=== PATIENT | female | born 1980 | race Caucasian/White ===

== ENCOUNTER 2023-01-21 10:12 | Outpatient (OUT) | payer MEDICAID, SELFPAY ==
[2023-01-21 10:05] VITALS: BP 154/115; PULSE 82; RESP 18; TEMP 36.8; O2SAT 97
[2023-01-21] MEDS: ONDANSETRON PF 4 MG/2 ML VIAL INJ (10:28)
[2023-01-21] MEDS: 0.9 % SODIUM CHLORIDE 1,000 ML 1000 ML IV (10:28)
--- NOTE | 2023-01-21 10:33 | PC.NURSE ---
1005: Pt. to [facility] amb. accompanied by significant other for IV hydration. Pt. c/o nausea x 24-48 hr. Seated in recliner. BP elevated, rest of VSS. #22 gauge IV initiated to right hand on first attempt. Blood drawn from IV for ordered lab work. Flushes easily without redness or edema. Pt. tolerated without c/o. Medicated with Zofran 4mg ivp as ordered and IV 0.9% NS initiated at this time. Warm blankets provided. Denies needs at this time.
--- NOTE | 2023-01-21 11:09 | PC.NURSE ---
1050: Pt. resting quietly with eyes closed. Appears to be without s&s of discomfort or nausea. IV site remains clear.
[2023-01-21 11:28] VITALS: BP 148/92; PULSE 68; RESP 14; TEMP 36.6; O2SAT 98
--- NOTE | 2023-01-21 11:30 | PC.NURSE ---
1124: IVF completed at this time. Relays relief in n/v. VSS. IV d/c'd, pressure to site. 1125: Pt d/c'd amb to home with significant other.
[2023-01-21 14:19] LABS: Alanine Aminotransferase 32 U/L (14-59); Albumin Globulin Ratio 1.4; Albumin Level 4.5 g/dL (3.4-5.0); Alkaline Phosphatase 53 U/L (46-116); Aspartate Amino Transferase 19 U/L (15-37); BUN Creatinine Ratio 15.7; Bilirubin Total 0.9 mg/dL (0.2-1.0); Calcium 9.4 mg/dL (8.5-10.1); Carbon Dioxide 23.8 mmol/L (21.0-32.0); Chloride 97 mmol/L (98-107); Estimated GFR (African America >60 (>=60); Estimated GFR (Non-African Ame >60 (>=60); Globulin 3.3 g/dL; Glucose 125 mg/dL (74-106); Sodium 136 mmol/L (136-145); Total Protein 7.8 g/dL (6.4-8.2)
[2023-01-21 14:31] LABS: Potassium 2.8 mmol/L (3.5-5.1)
== END 2023-01-21 10:13 | disposition home or self-care (01) ==
LOC: INF 10:20
PROVIDERS: PCP Nurse Practitioner Primary Care; Visit Provider Nurse Practitioner Primary Care
DX: K52.9 Noninfective gastroenteritis and colitis, unspecified (principal); R11.2 Nausea with vomiting, unspecified
CPT/HCPCS: 36415; 80053; 96372

== ENCOUNTER 2024-08-10 07:40 | Emergency (ER) | payer SELFPAY ==
[2024-08-10 07:47] VITALS: BP 203/104; PULSE 98; TEMP 36.6; O2SAT 98; BMI 25.0
--- NOTE | 2024-08-10 08:00 | ED_ITS ---
HPI HPI - General Adult General Chief complaint: Abdominal Pain Stated complaint: VOMITTING LATHARGIC DIZZINESS Time Seen by Provider: 08/10/24 07:57 Source: patient Mode of arrival: walk-in Limitations: no limitations History of Present Illness HPI narrative: 44-year-old female presents to the emergency department for 3-day history of nausea vomiting and diarrhea. No hematemesis or hematochezia. No known ill contacts. She has had some lower back pain as well since this started. Related Data Home Medications ?Medication ?Instructions ?Recorded ?Confirmed albuterol sulfate 90 mcg/actuation 2 puff inhalation Q6H PRN 08/10/24 08/10/24 aerosol inhaler shortness of breath or wheezing losartan 100 1 tab PO DAILY 08/10/24 08/10/24 mg-hydrochlorothiazide 25 mg tablet omeprazole 20 mg capsule,delayed 20 mg PO DAILY 08/10/24 08/10/24 release Previous Rx's ?Medication ?Instructions ?Recorded methocarbamol 500 mg tablet 500 mg PO Q8H PRN pain #20 tabs 08/10/24 ondansetron 4 mg disintegrating 4 mg PO Q6H PRN nausea and 08/10/24 tablet vomiting #20 tabs Allergies Allergy/AdvReac Type Severity Reaction Status Date / Time tramadol AdvReac Severe Seizure Verified 08/10/24 07:47 Opioid HPI Opioid Management Most Recent Opioid Data: Last Pain Scale 9 08/10/24 10:05 08/10/24 Last ED Pain Assessment 08/10/24 10:05 Last MAR Pain Assessment 08/10/24 08:15 Review of Systems ROS Narrative A ten point review of systems is negative except as noted above. 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 General: The patient appears in no apparent distress. Skin: Warm, dry, no pallor noted. There is no rash noted. Head: Normocephalic, atraumatic Eye: Normal conjunctiva, no drainage Ears, Nose, Mouth, and Throat: oral mucosa is moist. Nares patent. Cardiovascular: Regular Rate and Rhythm Respiratory: Patient is in no distress, no accessory muscle use, lungs are clear to auscultation, no wheezing, rales or rhonchi Back: non-tender, no CVA tenderness bilaterally to percussion. GI: Soft and nontender, nondistended Musculoskeletal: The patient has no evidence of calf tenderness, no pitting illlie ma, symmetrical pulses noted bilaterally Neurological: A&O, normal speech Psychiatric: Cooperative Constitutional Vital Signs, click to edit/add: Last Vital Signs Temp 98 F 08/10/24 07:47 Pulse 78 08/10/24 09:21 Resp 20 08/10/24 09:21 BP 172/85 H 08/10/24 09:21 Pulse Ox 99 08/10/24 09:21 O2 Del Method Room Air 08/10/24 09:21 Course Vital Signs Vital signs: Vital Signs Temperature 98 F 08/10/24 07:47 Pulse Rate 98 H 08/10/24 07:47 Respiratory Rate 20 08/10/24 07:47 Blood Pressure 203/104 H 08/10/24 07:47 Pulse Oximetry 98 08/10/24 07:47 Oxygen Delivery Method Room Air 08/10/24 07:47 Temperature 98 F 08/10/24 07:47 Pulse Rate 78 08/10/24 09:21 Respiratory Rate 20 08/10/24 09:21 Blood Pressure 172/85 H 08/10/24 09:21 Pulse Oximetry 99 08/10/24 09:21 Oxygen Delivery Method Room Air 08/10/24 09:21 Medical Decision Making MDM Narrative Medical decision making narrative: Blood work is essentially normal. She was given IV fluids and Zofran and is discharged home with prescriptions for Robaxin and Zofran. Treatment diagnosis and follow-up were discussed with the patient. Lab Data Lab results reviewed: Yes I reviewed the patient's lab results Labs: Lab Results 08/10/24 Range/Units 08:05 WBC 8.8 (4.0-11.0) 10^3/uL RBC 4.18 L (4.20-5.40) 10^6/uL Hgb 14.1 (12.0-16.0) g/dL Hct 38.7 (36.0-48.0) % MCV 92.6 (81.0-99.0) fL MCH 33.7 (26.7-34.0) pg MCHC 36.4 H (29.9-35.2) g/dL RDW 11.8 (11.0-15.0) % Plt Count 318 (150-450) 10^3/uL MPV 9.9 (9.5-13.5) fL Neut % (Auto) 74.6 (43.0-75.0) % Lymph % (Auto) 20.0 L (20.5-60.0) % [place] % (Auto) 4.7 (1.7-12.0) % Eos % (Auto) 0.2 L (0.9-7.0) % Baso % (Auto) 0.3 (0.2-2.0) % Neut # (Auto) 6.5 (1.4-6.5) 10^3/uL Lymph # (Auto) 1.8 (1.2-3.8) 10^3/uL [place] # (Auto) 0.4 (0.3-0.8) 10^3/uL Eos # (Auto) 0.0 (0.0-0.7) 10^3/uL Baso # (Auto) 0.0 (0.0-0.1) 10^3/uL Abs Immat Gran (auto) 0.02 (0.00-0.03) 10^3/uL Imm/Tot Granulo (auto) 0.2 (0.0-0.5) % Sodium 139 (136-145) mmol/L Potassium 3.3 L (3.5-5.1) mmol/L Chloride 101 (98-107) mmol/L Carbon Dioxide 25.6 (21.0-32.0) mmol/L Anion Gap 15.7 BUN 20.0 H (7.0-18.0) mg/dL Creatinine 0.75 (0.55-1.02) mg/dL Est GFR ( Amer) >60 (>=60 mL/min/1.73m^2) Est GFR (Non-Af Amer) >60 (>=60 mL/min/1.73m^2) BUN/Creatinine Ratio 26.7 Glucose 131 H (74-106) mg/dL Calcium 8.9 (8.5-10.1) mg/dL Serum HCG, Qual Negative (NEGATIVE) Discharge Plan Discharge Chief Complaint: Abdominal Pain Clinical Impression: Nausea & vomiting Patient Disposition: Home, Self-Care Time of Disposition Decision: 10:32 Condition: Good Mode of Transportation: Private Vehicle Prescriptions / Home Meds: New methocarbamol 500 mg tablet 500 mg PO Q8H PRN (Reason: pain) Qty: 20 0RF ondansetron 4 mg tablet,disintegrating 4 mg PO Q6H PRN (Reason: nausea and vomiting) Qty: 20 0RF No Action losartan-hydrochlorothiazide 100-25 mg tablet 1 tab PO DAILY omeprazole 20 mg capsule,delayed release(DR/EC) 20 mg PO DAILY albuterol sulfate 90 mcg/actuation HFA aerosol inhaler 2 puff INHALATION Q6H PRN (Reason: shortness of breath or wheezing) Print Language: [place]ian Instructions: Acute Nausea and Vomiting (ED) Referrals: Iván Prakash NP [Primary Care Provider] - 1 week
[2024-08-10] MEDS: 0.9 % SODIUM CHLORIDE 1,000 ML 1000 ML IV (08:15)
[2024-08-10] MEDS: KETOROLAC TROMETHAMINE 30 MG/ML VIAL IVP (08:15)
[2024-08-10] MEDS: ONDANSETRON PF 4 MG/2 ML VIAL IV (08:16)
[2024-08-10 08:21] VITALS: BP 187/104; PULSE 46; O2SAT 100
[2024-08-10 08:23] LABS: Basophils Percent Auto 0.3 % (0.2-2.0); Eosinophils Percent Auto 0.2 % (0.9-7.0); Hematocrit 38.7 % (36.0-48.0); Hemoglobin 14.1 g/dL (12.0-16.0); Immature Granulocytes Abs Auto 0.02 10^3/uL (0.00-0.03); Immature Granulocytes Pct Auto 0.2 % (0.0-0.5); Lymphocytes Absolute Auto 1.8 10^3/uL (1.2-3.8); Mean Corpuscular HGB Conc 36.4 g/dL (29.9-35.2); Mean Corpuscular Hemoglobin 33.7 pg (26.7-34.0); Mean Corpuscular Volume 92.6 fL (81.0-99.0); Mean Platelet Volume 9.9 fL (9.5-13.5); Monocytes Absolute Auto 0.4 10^3/uL (0.3-0.8); Monocytes Percent Auto 4.7 % (1.7-12.0); Neutrophils Absolute Auto 6.5 10^3/uL (1.4-6.5); Neutrophils Percent Auto 74.6 % (43.0-75.0); Platelet Count 318 10^3/uL (150-450); Red Blood Count 4.18 10^6/uL (4.20-5.40); Red Cell Distribution Width 11.8 % (11.0-15.0); White Blood Count 8.8 10^3/uL (4.0-11.0)
[2024-08-10 08:38] LABS: Anion Gap 15.7; BUN Creatinine Ratio 26.7; Calcium 8.9 mg/dL (8.5-10.1); Carbon Dioxide 25.6 mmol/L (21.0-32.0); Chloride 101 mmol/L (98-107); Estimated GFR (African America >60 (>=60 mL/min/1.73m^2); Estimated GFR (Non-African Ame >60 (>=60 mL/min/1.73m^2); Glucose 131 mg/dL (74-106); HCG Qualitative NEGATIVE (NEGATIVE); Internal Control Within Normal Limits; Potassium 3.3 mmol/L (3.5-5.1); Sodium 139 mmol/L (136-145)
[2024-08-10 09:21] VITALS: BP 172/85; PULSE 78; O2SAT 99
[2024-08-10] MEDS: ORPHENADRINE 60 MG/ 2 ML VIAL IV (10:02)
[2024-08-10 10:46] VITALS: BP 196/85; PULSE 79; O2SAT 99
--- NOTE | 2024-08-10 10:47 | PC.NURSE ---
pt to take home BP meds after d/c
== END 2024-08-10 10:48 | disposition home or self-care (01) ==
PROVIDERS: Emergency Provider Emergency Medicine; PCP Nurse Practitioner Primary Care
DX: R11.2 Nausea with vomiting, unspecified (principal)
CPT/HCPCS: 36415; 80048; 84703; 85025; 96361; 96374; 96375; 99284; J1885; J2360; J2405